=== PATIENT | female | born 1975 | race Caucasian/White ===

== ENCOUNTER 2016-09-25 10:07 | Emergency (ER) | payer BC ==
[2016-09-25 10:27] VITALS: BP 120/67; TEMP 98; BMI 30.7
[2016-09-25] MEDS ORDERED: KETOROLAC TROMETHAMINE 30 MG/1 ML VIAL IVPUSH ONE (11:18)
[2016-09-25] MEDS ORDERED: SODIUM CHLORIDE 1,000 ML IV STA (11:18)
--- NOTE | 2016-09-25 11:18 | PDOC ---
History of Present Illness - General History Source: Patient Exam Limitations: No Limitations - History of Present Illness Initial Comments: 09/25/16 11:20 The patient is a 41 year old female with no significant past medical history, who presents to the ED with a dry cough that began about a month ago. Patient states she has been on prednisone, amoxicillin, and sudafed PE in the past month , all with no effect. Patient also states that she ran out of her Singulair medication a month ago and has not had her prescription refilled. Patient denies chest pain, shortness of breath, nausea, vomiting, diarrhea. <Vega Whitaker - Last Filed: 09/25/16 12:20> <Fabby Prado - Last Filed: 09/25/16 17:05> - General Chief Complaint: Shortness of Breath Stated Complaint: COUGH, BACK PAIN Time Seen by Provider: 09/25/16 10:57 Past History <Vega Whitaker - Last Filed: 09/25/16 12:20> - Past Medical History GI Disorders: Yes (REFLUX) Other medical history: migraines.endometriosis - Immunization History Immunization Up to Date: Yes - Psycho/Social/Smoking Cessation Hx Anxiety: No Suicidal Ideation: No Smoking Status: No Smoking History: Never smoked Have you smoked in the past 12 months: No Number of Cigarettes Smoked Daily: 0 Cigars Per Day: 0 Information on smoking cessation initiated: No Hx Alcohol Use: No Drug/Substance Use Hx: No <Fabby Prado - Last Filed: 09/25/16 17:05> - Past Medical History Allergies/Adverse Reactions: Allergies Allergy/AdvReac Type Severity Reaction Status Date / Time No Known Allergies Allergy Verified 09/25/16 10:23 Home Medications: Ambulatory Orders Omeprazole [Prilosec] 20 mg PO PRN PRN 02/25/15 Propranolol HCl [Inderal] 80 mg PO DAILY 02/25/15 Albuterol Sulfate Inhaler - [Ventolin HFA Inhaler -] 1 - 2 inh PO QID PRN #1 inhaler 09/25/16 Amitriptyline HCl [Elavil -] 0 mg PO DAILY 09/25/16 Guaifenesin AC [Robitussin AC -] 5 ml PO Q6H PRN #60 ml MDD 20 mL 09/25/16 Montelukast Na [Singulair -] 10 mg PO HS #30 tablet 09/25/16 Review of Systems - Review of Systems Able to Perform ROS?: Yes Comments:: 09/25/16 11:20 GENERAL/CONSTITUTIONAL: No fever or chills. No weakness. HEAD, EYES, EARS, NOSE AND THROAT: No change in vision. No ear pain or discharge. No sore throat. CARDIOVASCULAR: No chest pain or shortness of breath. RESPIRATORY: + dry cough. No wheezing, or hemoptysis. GASTROINTESTINAL: No nausea, vomiting, diarrhea or constipation. GENITOURINARY: No dysuria, frequency, or change in urination. MUSCULOSKELETAL: No joint or muscle swelling or pain. No neck or back pain. SKIN: No rash NEUROLOGIC: No headache, vertigo, loss of consciousness, or change in strength/ sensation. ENDOCRINE: No increased thirst. No abnormal weight change. HEMATOLOGIC/LYMPHATIC: No anemia, easy bleeding, or history of blood clots. ALLERGIC/IMMUNOLOGIC: No hives or skin allergy. <Vega Whitaker - Last Filed: 09/25/16 12:20> *Physical Exam - Vital Signs Last Vital Signs Temp Pulse Resp BP Pulse Ox 98.0 F 77 18 120/67 99 09/25/16 10:24 09/25/16 10:24 09/25/16 10:24 09/25/16 10:24 09/25/16 10:24 - Physical Exam Comments: 09/25/16 11:21 GENERAL: Awake, alert, and fully oriented, in no acute distress. Intermittent episodes of dry cough. HEAD: No signs of trauma EYES: PERRLA, EOMI, sclera anicteric, conjunctiva clear ENT: Auricles normal inspection, hearing grossly normal, nares patent, oropharynx clear without exudates. Moist mucosa NECK: Normal ROM, supple, no lymphadenopathy, JVD, or masses LUNGS: Breath sounds equal, clear to auscultation bilaterally. No wheezes, and no crackles HEART: Regular rate and rhythm, normal S1 and S2, no murmurs, rubs or gallops ABDOMEN: Soft, nontender, normoactive bowel sounds. No guarding, no rebound. No masses EXTREMITIES: Normal range of motion, no edema. No clubbing or cyanosis. No cords, erythema, or tenderness NEUROLOGICAL: Cranial nerves II through XII grossly intact. Normal speech, normal gait SKIN: Warm, Dry, normal turgor, no rashes or lesions noted. <Vega Whitaker - Last Filed: 09/25/16 12:20> - Vital Signs Last Vital Signs Temp Pulse Resp BP Pulse Ox 98.0 F 77 18 120/67 99 09/25/16 10:24 09/25/16 10:24 09/25/16 10:24 09/25/16 10:24 09/25/16 10:24 <Fabby Prado - Last Filed: 09/25/16 17:05> ED Treatment Course - RADIOLOGY Radiology Studies Ordered: 09/25/16 12:20 EXAM: Chest PA and LAT History provided: Rule out pneumonia. PA and lateral projections of the chest are submitted. The heart size is within normal limites. THe lung appiah are free of pulmonary infiltrates or pleural effusions. There is a prominent pericardial fat pad in the right cardiophrenic angle. Impression: No acute pathology. <Vega Whitaker - Last Filed: 09/25/16 12:20> Medical Decision Making - Medical Decision Making Pt responded well to robitussin AC, no longer coughing. Able to tolerate PO and speak full sentences. Will discharge with inhaler, robitussin AC, and a refill of her singulair. <Fabby Prado - Last Filed: 09/25/16 17:05> *DC/Admit/Observation/Transfer - Attestations Scribe Attestion: 09/25/16 11:21 Documentation prepared by Vega Whitaker, acting as medical officer psychiatry for Fabby Prado MD, . <Vega Whitaker - Last Filed: 09/25/16 12:20> - Discharge Dispostion Admit: No <Fabby Prado - Last Filed: 09/25/16 17:05> Diagnosis at time of Disposition: Cough - Discharge Dispostion Disposition: HOME Condition at time of disposition: Stable - Prescriptions Prescriptions: Guaifenesin AC [Robitussin AC -] 5 ml PO Q6H PRN #60 ml MDD 20 mL PRN Reason: Cough Montelukast Na [Singulair -] 10 mg PO HS #30 tablet Albuterol Sulfate Inhaler - [Ventolin HFA Inhaler -] 1 - 2 inh PO QID PRN #1 inhaler PRN Reason: Short Of Breath/Wheezing - Referrals Referrals: Maria Del Carmen Werner MD [Primary Care Provider] - - Patient Instructions Printed Discharge Instructions: DI for Cough -- Adult
[2016-09-25] MEDS ORDERED: ALBUTEROL SO4 2.5/IPRATROPIUM 0.5 INH SOL 3 ML VIAL.NEB. NEB ONE ×2 (11:19→11:33)
[2016-09-25] MEDS ORDERED: guaiFENesin/CODEINE 10 ML UNIT-DOSE CUPS PO ONE (11:19)
[2016-09-25] MEDS ORDERED: DEXAMETHASONE SOD PHOSPHATE 10 MG/1 ML VIAL IVPB ONE (11:19)
[2016-09-25] MEDS ORDERED: guaiFENesin/CODEINE 5 ML UNIT-DOSE CUPS PO ONE (11:33)
[2016-09-25] MEDS ORDERED: DEXAMETHASONE SOD PHOSPHATE 10 MG/1 ML VIAL ONE (11:33)
[2016-09-25] MEDS ORDERED: KETOROLAC TROMETHAMINE 30 MG/1 ML VIAL ONE (11:34)
[2016-09-25 13:49] VITALS: PULSE 78
== END 2016-09-25 13:49 | disposition home or self-care (01) ==
LOC: JER 10:07
PROC: 3E0F7GC Introduction of Other Therapeutic Substance into Respiratory Tract, Via Natural or Artificial Opening (ICD-10-PCS; principal; 2016-09-25)
PROC: 3E0333Z Introduction of Anti-inflammatory into Peripheral Vein, Percutaneous Approach (ICD-10-PCS; 2016-09-25)
DX: R05 Cough (principal)
CPT/HCPCS: 36415; 71020-TC; 84703; 87420; 87804; 99282-25

== ENCOUNTER 2017-01-23 08:37 | Emergency (ER) | payer BC ==
[2017-01-23 08:50] VITALS: BMI 30.2
[2017-01-23] MEDS ORDERED: ALBUTEROL SO4 0.083% IH SOL 2.5 MG/3 ML VIAL.NEB. NEB ONE (09:33)
[2017-01-23] MEDS ORDERED: KETOROLAC TROMETHAMINE 30 MG/1 ML VIAL IVPUSH ONE (09:33)
[2017-01-23 09:35] LABS: URINE APPEARANCE CLEAR; URINE BILIRUBIN NEGATIVE (NEGATIVE); URINE BLOOD NEGATIVE (NEGATIVE); URINE COLOR LTYELLOW; URINE GLUCOSE (UA) NEGATIVE (NEGATIVE); URINE KETONE NEGATIVE (NEGATIVE); URINE LEUK ESTERASE NEGATIVE (NEGATIVE); URINE NITRITE NEGATIVE (NEGATIVE); URINE PROTEIN NEGATIVE (NEGATIVE); URINE UROBILINOGEN NEGATIVE E.U./dl (0.2-1.0)
[2017-01-23] MEDS ORDERED: KETOROLAC TROMETHAMINE 30 MG/1 ML VIAL ONE (09:46)
[2017-01-23 10:14] LABS: BASOPHIL 0.2 % (0-2.0); EOSINOPHIL 1.4 % (0-4.5); MCH 30.5 pg (25.7-33.7); MCHC 34.4 g/dl (32.0-36.0); MEAN CELL VOLUME 88.6 fl (80-96); MEAN PLT VOLUME 8.4 fl (7.5-11.1); NEUTROPHILS 56.7 % (42.8-82.8); PLATELET COUNT 281 K/MM3 (134-434); RDW 12.8 % (11.6-15.6); WHITE BLOOD COUNT 6.1 K/mm3 (4.0-10.0)
--- NOTE | 2017-01-23 10:21 | PDOC ---
*Physical Exam - Vital Signs Last Vital Signs Temp Pulse Resp BP Pulse Ox 97.8 F 68 18 111/73 99 01/23/17 08:41 01/23/17 08:41 01/23/17 08:41 01/23/17 08:41 01/23/17 08:41 - Physical Exam Comments: 01/23/17 10:20 The patient was examined by [YUAN Viera] under my direct supervision. I personally evaluated the patient. I concur with the above findings and the plan of care. ED Treatment Course - LABORATORY CBC & Chemistry Diagram: 01/23/17 09:55 01/23/17 09:55 - ADDITIONAL ORDERS Additional order review: Laboratory Results 01/23/17 01/23/17 09:30 09:15 Urine Color Ltyellow Urine Appearance Clear Urine pH 6.0 Urine Protein Negative Urine Glucose (UA) Negative Urine Ketones Negative Urine Blood Negative Urine Nitrite Negative Urine Bilirubin Negative Urine Urobilinogen Negative Ur Leukocyte Esterase Negative Urine HCG, Qual Negative - Medications Given in the ED: ED Medications Discontinued Medications Generic Name Dose Route Start Last Admin Trade Name Freq PRN Reason Stop Dose Admin Ketorolac Tromethamine 30 mg 01/23/17 09:33 01/23/17 09:57 Toradol Injection - IVPUSH 01/23/17 09:34 30 mg ONCE ONE Administration *DC/Admit/Observation/Transfer Diagnosis at time of Disposition: Bronchitis - Discharge Dispostion Disposition: HOME Condition at time of disposition: Good - Prescriptions Prescriptions: Albuterol Sulfate Inhaler - [Ventolin HFA Inhaler -] 1 - 2 inh PO QID PRN #1 inhaler PRN Reason: Wheezing Azithromycin [Zithromax Tri-Ambrose (3 DAYS) -] 500 mg PO DAILY #3 tablet - Referrals Referrals: Maria Del Carmen Werner MD [Primary Care Provider] - - Patient Instructions Printed Discharge Instructions: DI for Acute Bronchitis Additional Instructions: Please take antibiotics as prescribed and use your inhaler as needed. Also recommend that you use throat lozenges and take Robitussin as needed for cough suppression. Please follow up with your PCP and/or return to ED if symptoms worsen - Post Discharge Activity Work/School Note: Back to Work
[2017-01-23 10:25] LABS: ALBUMIN 3.9 g/dl (3.4-5.0); ANION GAP 10 (8-16); BILIRUBIN,TOTAL 0.5 mg/dL (0.2-1.0); CALCIUM 9.3 mg/dL (8.5-10.1); CO2 22 mmol/L (21-32); COCKROFT - GAULT 108.2815; CREATININE 0.9 mg/dL (0.55-1.02); GLUCOSE,RANDOM 98 mg/dL (74-106); SGOT/AST 21 U/L (15-37); SGPT/ALT 25 U/L (12-78); TOT PROT 7.5 g/dl (6.4-8.2)
[2017-01-23 10:26] LABS: ALK PHOS 76 U/L (45-117); TROPONIN I < 0.02 ng/ml (0.00-0.05)
--- NOTE | 2017-01-23 11:00 | PDOC ---
History of Present Illness - General Chief Complaint: Chest Pain Stated Complaint: CHEST SIDE, LT SIDE NUMBNESS Time Seen by Provider: 01/23/17 08:48 History Source: Patient Exam Limitations: No Limitations - History of Present Illness Initial Comments: 01/23/17 10:58 41-year-old female presents to the ED with complaints of dry hacking cough and nasal congestion for the past week now associated with left-sided chest achiness and mild shortness of breath on exertion. Patient states also has been having tingling to her upper and lower extremities for the past few months after being placed on Topamax but now complaining of tingling to the left arm more persistently for the past 2 days. Patient denies recent travel, recent surgery, recent illness, or exogenous estrogen usage. Presenting Symptoms: Chest Pain Timing/Duration: reports: constant Severity/Quality: reports: mild, moderate, aching Location: reports: substernal Chest Pain Radiation: reports: no radiation Activities at Onset: reports: none Prior Chest Pain/Cardiac Workup: reports: No prior chest pain Nitro Today/Relief: Yes: no nitro taken today Aspirin Received prior to arrival (Core Measure): Yes: no aspirin today Associated Symptoms: Yes: Cough, Chest Pain/pressure, Shortness of Breath (mild with exertion). No: Weakness Past History - Past Medical History Allergies/Adverse Reactions: Allergies Allergy/AdvReac Type Severity Reaction Status Date / Time latex Allergy Verified 01/23/17 08:51 Home Medications: Ambulatory Orders Omeprazole [Prilosec] 20 mg PO PRN PRN 02/25/15 Propranolol HCl [Inderal] 80 mg PO DAILY 02/25/15 Albuterol Sulfate Inhaler - [Ventolin HFA Inhaler -] 1 - 2 inh PO QID PRN #1 inhaler 09/25/16 Montelukast Na [Singulair -] 10 mg PO HS #30 tablet 09/25/16 Meloxicam [Mobic (Nf) -] 15 mg PO PRN 01/23/17 Topiramate 100 mg PO DAILY 01/23/17 Anemia: Yes GI Disorders: Yes (REFLUX) Other medical history: ENDOMETRIOSIS, MIGRAINES - Immunization History Immunization Up to Date: Yes - Psycho/Social/Smoking Cessation Hx Anxiety: No Suicidal Ideation: No Smoking Status: No Smoking History: Never smoked Have you smoked in the past 12 months: No Number of Cigarettes Smoked Daily: 0 Cigars Per Day: 0 Hx Alcohol Use: No Drug/Substance Use Hx: No Patient Lives Alone: No Lives with/in: spouse/SO Review of Systems - Review of Systems Able to Perform ROS?: Yes Constitutional: No: Symptoms Reported, Chills, Fever, Weakness HEENTM: No: Symptoms Reported Respiratory: Yes: Cough, SOB with Exertion Cardiac (ROS): Yes: Chest Pain (left) ABD/GI: No: Symptoms Reported Musculoskeletal: No: Symptoms Reported Integumentary: No: Symptoms Reported Neurological: No: Symptoms reported Endocrine: No: Symptoms Reported Hematologic/Lymphatic: No: Symptoms Reported *Physical Exam - Vital Signs Last Vital Signs Temp Pulse Resp BP Pulse Ox 98.7 F 88 17 118/78 100 01/23/17 12:58 01/23/17 12:58 01/23/17 12:58 01/23/17 12:58 01/23/17 12:58 - Physical Exam General Appearance: Yes: Nourished, Appropriately Dressed. No: Apparent Distress HEENT: positive: EOMI, HILL[place], TMs Normal, Pharynx Normal. negative: Pale Conjunctivae Neck: positive: Supple Respiratory/Chest: positive: Lungs Clear, Normal Breath Sounds. negative: Chest Tender, Respiratory Distress, Accessory Muscle Use, Decreased Breath Sounds Cardiovascular: positive: Regular Rhythm, Regular Rate. negative: Murmur Vascular Pulses: Dorsalis-Pedis (R): 2+, Doralis-Pedis (L): 2+ Gastrointestinal/Abdominal: positive: Soft. negative: Tenderness Musculoskeletal: negative: CVA Tenderness Extremity: positive: Normal Capillary Refill. negative: Pedal Edema Integumentary: positive: Normal Color, Warm, Moist Neurologic: positive: Motor Strength 5/5 (ambulatory) ED Treatment Course - LABORATORY CBC & Chemistry Diagram: 01/23/17 09:55 01/23/17 09:55 - ADDITIONAL ORDERS Additional order review: Laboratory Results 01/23/17 01/23/17 01/23/17 09:55 09:55 09:55 D-Dimer 253 H Sodium 139 Potassium 4.4 Chloride 107 Carbon Dioxide 22 Anion Gap 10 BUN 16 Creatinine 0.9 D Creat Clearance w eGFR > 60 Random Glucose 98 Calcium 9.3 Magnesium 2.2 Total Bilirubin 0.5 D AST 21 D ALT 25 Alkaline Phosphatase 76 D Creatine Kinase 141 Troponin I < 0.02 Total Protein 7.5 Albumin 3.9 Urine Color Urine Appearance Urine pH Urine Protein Urine Glucose (UA) Urine Ketones Urine Blood Urine Nitrite Urine Bilirubin Urine Urobilinogen Ur Leukocyte Esterase Urine HCG, Qual 01/23/17 01/23/17 09:30 09:15 D-Dimer Sodium Potassium Chloride Carbon Dioxide Anion Gap BUN Creatinine Creat Clearance w eGFR Random Glucose Calcium Magnesium Total Bilirubin AST ALT Alkaline Phosphatase Creatine Kinase Troponin I Total Protein Albumin Urine Color Ltyellow Urine Appearance Clear Urine pH 6.0 Urine Protein Negative Urine Glucose (UA) Negative Urine Ketones Negative Urine Blood Negative Urine Nitrite Negative Urine Bilirubin Negative Urine Urobilinogen Negative Ur Leukocyte Esterase Negative Urine HCG, Qual Negative 01/23/17 09:55 RBC 4.25 MCV 88.6 MCHC 34.4 RDW 12.8 MPV 8.4 Neutrophils % 56.7 D Lymphocytes % 31.5 D Monocytes % 10.2 D Eosinophils % 1.4 Basophils % 0.2 - RADIOLOGY Radiology Studies Ordered: Category Date Time Status CHEST CTA [CT] Stat CT Scan 01/23/17 11:14 Completed - Medications Given in the ED: ED Medications Discontinued Medications Generic Name Dose Route Start Last Admin Trade Name Freq PRN Reason Stop Dose Admin Albuterol Sulfate 1 amp 01/23/17 09:33 01/23/17 09:40 Ventolin 0.083% Nebulizer Soln - NEB 01/23/17 09:34 1 amp ONCE ONE Administration Diphenhydramine HCl 50 mg 01/23/17 12:22 01/23/17 12:00 Benadryl Injection - IVPB 01/23/17 12:23 50 mg ONCE ONE Administration Ketorolac Tromethamine 30 mg 01/23/17 09:33 01/23/17 09:57 Toradol Injection - IVPUSH 01/23/17 09:34 30 mg ONCE ONE Administration Methylprednisolone Sodium Succinate 125 mg 01/23/17 12:22 01/23/17 12:05 Solu-Medrol - IVPB 01/23/17 12:23 125 mg ONCE ONE Administration Medical Decision Making - Medical Decision Making 01/23/17 11:03 Patient here with complaints of cough and congestion for the past week now associated with left-sided chest pain and shortness breath on exertion. Patient examined had no acute findings. Patient was ordered for labs including cardiac profile, CBC, comp, d-dimer and chest x-ray and EKG.. 01/23/17 11:15 Laboratory Tests 01/23/17 01/23/17 01/23/17 09:15 09:30 09:55 WBC 6.1 Hgb 12.9 Hct 37.6 Plt Count 281 Neutrophils % 56.7 D D-Dimer Sodium Potassium Chloride Carbon Dioxide Anion Gap BUN Creatinine Random Glucose Calcium Magnesium Total Bilirubin AST ALT Alkaline Phosphatase Creatine Kinase Troponin I Urine Ketones Negative Urine Nitrite Negative Urine HCG, Qual Negative 01/23/17 01/23/17 01/23/17 09:55 09:55 09:55 WBC Hgb Hct Plt Count Neutrophils % D-Dimer 253 H Sodium 139 Potassium 4.4 Chloride 107 Carbon Dioxide 22 Anion Gap 10 BUN 16 Creatinine 0.9 D Random Glucose 98 Calcium 9.3 Magnesium 2.2 Total Bilirubin 0.5 D AST 21 D ALT 25 Alkaline Phosphatase 76 D Creatine Kinase 141 Troponin I < 0.02 Urine Ketones Urine Nitrite Urine HCG, Qual Pt ordered for chest CTA 01/23/17 13:38 CT of the chest shows no gross evidence of PE within the main pulmonary artery and its proximal branches bilaterally. No signs of pneumonia or other acute findings. Patient be discharged home with Z-Ambrose, inhaler and told to follow-up with her PCP. *DC/Admit/Observation/Transfer Diagnosis at time of Disposition: Bronchitis - Discharge Dispostion Disposition: HOME Condition at time of disposition: Good - Referrals Referrals: Maria Del Carmen Werner MD [Primary Care Provider] - - Patient Instructions Printed Discharge Instructions: DI for Acute Bronchitis Additional Instructions: Please take antibiotics as prescribed and use your inhaler as needed. Also recommend that you use throat lozenges and take Robitussin as needed for cough suppression. Please follow up with your PCP and/or return to ED if symptoms worsen
[2017-01-23] MEDS ORDERED: methylPREDNISolone NA SUCC 125 MG/2 ML VIAL ONE (11:57)
[2017-01-23] MEDS ORDERED: methylPREDNISolone NA SUCC 125 MG/2 ML VIAL IVPB ONE (12:22)
[2017-01-23 12:59] VITALS: BP 118/78; PULSE 88; TEMP 98.7
--- NOTE | 2017-01-23 15:50 | EKG ---
Test Reason : Blood Pressure : / mmHG Vent. Rate : 069 BPM Atrial Rate : 069 BPM P-R Int : 168 ms QRS Dur : 078 ms QT Int : 374 ms P-R-T Axes : 034 060 028 degrees QTc Int : 400 ms NORMAL SINUS RHYTHM NORMAL ECG WHEN COMPARED WITH ECG OF 04-AUG-2012 17:45, VENT. RATE HAS DECREASED BY 38 BPM T WAVE VARIATION Confirmed by LUIS DIEGO MD ([id number]) on 01/23/2017 3:50:41 PM Referred By: Confirmed By:LUIS DIEGO MD
== END 2017-01-23 14:00 | disposition home or self-care (01) ==
LOC: JER 08:37
PROC: 3E0F7GC Introduction of Other Therapeutic Substance into Respiratory Tract, Via Natural or Artificial Opening (ICD-10-PCS; principal; 2017-01-23)
PROC: 3E0333Z Introduction of Anti-inflammatory into Peripheral Vein, Percutaneous Approach (ICD-10-PCS; 2017-01-23)
PROC: 3E0333Z Introduction of Anti-inflammatory into Peripheral Vein, Percutaneous Approach (ICD-10-PCS; 2017-01-23)
PROC: 3E033GC Introduction of Other Therapeutic Substance into Peripheral Vein, Percutaneous Approach (ICD-10-PCS; 2017-01-23)
DX: J40 Bronchitis, not specified as acute or chronic (principal)
CPT/HCPCS: 36415; 71275-TC; 80053; 81003; 82550; 83735; 84484; 84703; 85025; 85379; 93005; 93010; 99284-25

== ENCOUNTER 2018-02-07 09:20 | Emergency (ER) | payer BC ==
[2018-02-07 09:31] VITALS: BP 112/78; PULSE 62; TEMP 98.6; BMI 24.2
[2018-02-07] MEDS ORDERED: NAPROXEN 500 MG TABLET (FP) PO ONE (09:44)
[2018-02-07] MEDS ORDERED: KETOROLAC TROMETHAMINE 15 MG/ML VIAL IM ONE (09:48)
[2018-02-07] MEDS ORDERED: KETOROLAC TROMETHAMINE 30 MG/1 ML VIAL ONE (09:52)
--- NOTE | 2018-02-07 09:58 | PDOC ---
History of Present Illness - General Chief Complaint: Pain Stated Complaint: LEFT HAND, LEFT WRIST PAIN Time Seen by Provider: 02/07/18 09:28 - History of Present Illness Initial Comments: 02/07/18 09:45 43-year-old right-handed female with a history of hysterectomy, spinal stenosis , rotator cuff injury followed by pain management and is on gabapentin for 1 week presents to the emergency Department with left wrist pain for 2 days. Patient denies any trauma. She states the pain began when she was on her way to go bowling with her children. Denies any trauma to the wrist. She states the pain is worse over the lateral aspect of her wrist radiating from her thumb and up into her distal lateral forearm. Reports similar pain in the past but over her shoulder. Patient has not tried any pain medication and missed her dose of gabapentin last night. Denies any fevers or chills. Denies chest pain, shortness of breath, headache, weakness, numbness, abdominal pain. Past History - Past Medical History Allergies/Adverse Reactions: Allergies Allergy/AdvReac Type Severity Reaction Status Date / Time latex Allergy Verified 01/23/17 08:51 shellfish derived Allergy Verified 02/07/18 09:22 IV CONTRAST Allergy Uncoded 02/07/18 09:22 Home Medications: Ambulatory Orders propRANOLol HCL [Inderal] 80 mg PO DAILY 02/25/15 Montelukast Na [Singulair -] 10 mg PO HS #30 tablet 09/25/16 Topiramate 50 mg PO BID 01/23/17 Cetirizine HCl [Zyrtec -] 10 mg PO DAILY 02/07/18 Anemia: Yes COPD: No GI Disorders: Yes (REFLUX) Other medical history: SEASONAL ALLERGIES, LEFT ROTATOR TENDINITIS, MIGRAINE HEADACHES - Immunization History Immunization Up to Date: Yes - Suicide/Smoking/Psychosocial Hx Smoking Status: No Smoking History: Never smoked Have you smoked in the past 12 months: No Number of Cigarettes Smoked Daily: 0 Cigars Per Day: 0 Hx Alcohol Use: No Drug/Substance Use Hx: No Review of Systems - Review of Systems Comments:: 02/07/18 09:48 GENERAL/CONSTITUTIONAL: No fever or chills. No weakness. HEAD, EYES, EARS, NOSE AND THROAT: No change in vision. No ear pain or discharge. No sore throat. GASTROINTESTINAL: No nausea, vomiting, diarrhea or constipation. GENITOURINARY: No dysuria, frequency, or change in urination. CARDIOVASCULAR: No chest pain or shortness of breath. RESPIRATORY: No cough, wheezing, or hemoptysis. MUSCULOSKELETAL: +L wrist pain. No neck or back pain. SKIN: No rash NEUROLOGIC: No headache, vertigo, loss of consciousness, or change in strength/ sensation. ENDOCRINE: No increased thirst. No abnormal weight change. HEMATOLOGIC/LYMPHATIC: No anemia, easy bleeding, or history of blood clots. ALLERGIC/IMMUNOLOGIC: No hives or skin allergy. *Physical Exam - Vital Signs Last Vital Signs Temp Pulse Resp BP Pulse Ox 98.6 F 62 18 112/78 100 02/07/18 09:20 02/07/18 09:20 02/07/18 09:20 02/07/18 09:20 02/07/18 09:20 - Physical Exam Comments: 02/07/18 09:49 GENERAL: Awake, alert, and fully oriented, in no acute distress EYES: PERRLA, EOMI, sclera anicteric, conjunctiva clear LUNGS: Breath sounds equal, clear to auscultation bilaterally. No wheezes, and no crackles HEART: Regular rate and rhythm, normal S1 and S2, no murmurs, rubs or gallops ABDOMEN: Soft, nontender, normoactive bowel sounds. No guarding, no rebound. No masses EXTREMITIES: L wrist: tenderness to palpation over the radial styloid, pain at the radial styloid with active and passive stretch the thumb tendons over the radial styloid in thumb flexion. Able to fully flex and extend hand at the wrist. FROM at the wrist. No edema, erythema. Able to give thumbs up, okay sign and abduct fingers against resistance. Normal sensation in L extremity. 2+ radial pulse. Other ext: Normal range of motion, no edema. No clubbing or cyanosis. No cords , erythema, or tenderness BACK: no midline cervical, lumabar, thoracic ttp NEUROLOGICAL: Normal speech, cranial nerves intact, negative pronator drift, 5/ 5 strength in all 4 extremities, normal sensation to light touch in all 4 extremities, normal cerebellar exam, normal gait, normal reflexes and tone SKIN: Warm, Dry, normal turgor, no rashes or lesions noted. ED Treatment Course - RADIOLOGY Radiology Studies Ordered: Category Date Time Status WRIST-LEFT [RAD] Stat Radiology 02/07/18 09:43 Ordered Medical Decision Making - Medical Decision Making 02/07/18 09:57 43yo F presents to the ED with atraumatic L wrist pain consistent with dequervain tendinopathy. Vitals wnl. Pt NVI on exam but with positive cierra's test. Will obtain XR, treat with toradol and reassess. 02/07/18 10:48 XR negative. Pain improved with toradol. Will provide hand f/u referral. I discussed the physical exam findings, ancillary test results and final diagnoses with the patient. I answered all of the patient's questions. The patient was satisfied with the care received and felt comfortable with the discharge plan and treatment plan. The patient will call their primary care physician within 24 hours to arrange follow-up and will return to the Emergency Department with any new, persistent or worsening symptoms. *DC/Admit/Observation/Transfer Diagnosis at time of Disposition: De Quervain's disease (tenosynovitis) - Discharge Dispostion Disposition: HOME Condition at time of disposition: Stable Decision to Admit order: No - Referrals Referrals: Joey Duron MD [Staff Physician] - - Patient Instructions Additional Instructions: Call Dr. Duron's office for a follow up appointment with a hand doctor within 1 week. Take the naproxen twice a day for pain and inflammation. Return to the emergency department if you have any new, worsening, or concerning symptoms. - Post Discharge Activity - Attestations Physician Attestion: 02/07/18 10:51 I, Dr. Sandeep Morgan MD, attest that this document has been prepared under my direction and personally reviewed by me in its entirety. I further attest, that it accurately reflects all work, treatment, procedures and medical decision -making performed by me.
== END 2018-02-07 11:00 | disposition home or self-care (01) ==
LOC: FER 09:20
PROC: 3E0233Z Introduction of Anti-inflammatory into Muscle, Percutaneous Approach (ICD-10-PCS; principal; 2018-02-07)
DX: J30.2 Other seasonal allergic rhinitis (principal); D64.9 Anemia, unspecified
CPT/HCPCS: 73110-TC-LR-FY; 99283-25

== ENCOUNTER 2020-08-29 02:51 | Inpatient (IN) | payer BC ==
[2020-08-29 04:43] LABS: BASO % 0.2 % (0-2.0); HEMATOCRIT 32.1 % (32.4-45.2); HEMOGLOBIN 10.9 GM/dL (10.7-15.3); MCH 31.4 pg (25.7-33.7); MCHC 33.9 g/dl (32.0-36.0); MEAN CELL VOLUME 92.5 fl (80-96); MEAN PLT VOLUME 7.6 fl (7.5-11.1); NEUT % 47.8 % (42.8-82.8); PLATELET COUNT 366 K/MM3 (134-434); RBC 3.47 M/mm3 (3.60-5.2); RDW 13.1 % (11.6-15.6)
[2020-08-29 05:04] LABS: CHLORIDE 110 mmol/L (98-107); POTASSIUM 4.2 mmol/L (3.5-5.1); SODIUM 140 mmol/L (136-145)
[2020-08-29 05:07] LABS: CALCIUM 8.7 mg/dL (8.5-10.1)
[2020-08-29 05:08] LABS: ALBUMIN 3.3 g/dl (3.4-5.0); ANION GAP 7 MMOL/L (8-16); BLOOD UREA NITROGEN 20.2 mg/dL (7-18); CO2 23 mmol/L (21-32); GLUCOSE,RANDOM 109 mg/dL (74-106)
[2020-08-29 05:10] LABS: CREATININE 0.7 mg/dL (0.55-1.3); SGOT/AST 40 U/L (15-37); SGPT/ALT 62 U/L (13-61)
[2020-08-29 05:12] LABS: BILIRUBIN,TOTAL 0.2 mg/dL (0.2-1); TOT PROT 7.1 g/dl (6.4-8.2)
[2020-08-29 05:14] LABS: ALK PHOS 84 U/L (45-117)
[2020-08-29] MEDS ORDERED: PREGABALIN 25 MG CAPSULE PO ONE (11:35)
[2020-08-29] MEDS ORDERED: METHOCARBAMOL 500 MG TABLET PO ONE (11:36)
[2020-08-29] MEDS ORDERED: METHOCARBAMOL 500 MG TABLET ONE (11:39)
[2020-08-29 15:18] VITALS: BMI 28.8
[2020-08-29] MEDS ORDERED: DOCUSATE SODIUM 100 MG CAPSULE (FP) PO PRN (15:18)
[2020-08-29] MEDS ORDERED: MORPHINE SULFATE 2 MG/ML VIAL IVPUSH PRN (15:21)
[2020-08-29] MEDS: ENOXAPARIN NA (PORCINE) 80 MG/0.8 ML DISP.SYRIN SQ SCH (15:39)
[2020-08-29] MEDS: PREGABALIN 25 MG CAPSULE PO SCH ×2 (15:39→21:18)
[2020-08-29] MEDS: METHOCARBAMOL 500 MG TABLET PO PRN (21:28)
[2020-08-29] MEDS ORDERED: LORATADINE 10 MG TABLET PO SCH (22:00)
[2020-08-29] MEDS ORDERED: MONTELUKAST NA 10 MG TABLET PO SCH (22:00)
[2020-08-29] MEDS ORDERED: TOPIRAMATE 100 MG TABLET PO SCH (22:00)
[2020-08-29] MEDS ORDERED: PT OWN MED DRAWER 7, Y5N ONE (22:29)
[2020-08-30] MEDS: ENOXAPARIN NA (PORCINE) 80 MG/0.8 ML DISP.SYRIN SQ SCH ×2 (02:14→17:17)
[2020-08-30] MEDS: PREGABALIN 25 MG CAPSULE PO SCH ×2 (06:18→13:28)
[2020-08-30 08:12] LABS: BASO % 2.4 % (0-2.0); EOS % 2.5 % (0-4.5); HEMOGLOBIN 11.3 GM/dl (10.7-15.3); LYMPH % 48.1 % (8-40); MCHC 32.4 g/dl (32.0-36.0); MEAN CELL VOLUME 92.6 fl (80-96); MEAN PLT VOLUME 7.7 fl (7.5-11.1); MONO % 9.5 % (3.8-10.2); NEUT % 37.5 % (42.8-82.8); PLATELET COUNT 424 K/MM3 (134-434); RBC 3.78 M/mm3 (3.60-5.2); RDW 12.3 % (11.6-15.6); WHITE BLOOD COUNT 6.5 K/mm3 (4.0-10.8)
[2020-08-30 08:41] LABS: ALBUMIN 3.4 g/dl (3.4-5.0); BILIRUBIN,TOTAL 0.6 mg/dl (0.2-1); CALCIUM 8.8 mg/dl (8.5-10); CREATININE 0.7 mg/dl (0.55-1.3); MAGNESIUM 1.8 mg/dL (1.8-2.4); PHOSPHOROUS 3.9 mg/dl (2.5-4.9); POTASSIUM 3.6 mmol/L (3.5-5.1); TOT PROT 6.9 g/dl (6.4-8.2)
[2020-08-30] MEDS ORDERED: PANTOPRAZOLE 40 MG TABLET PO SCH (10:00)
[2020-08-30] MEDS ORDERED: FAMOTIDINE 20 MG TABLET PO SCH (10:00)
[2020-08-30] MEDS ORDERED: PT OWN MED DRAWER 7, Y5N ONE (11:47)
[2020-08-30] MEDS: METHOCARBAMOL 500 MG TABLET PO PRN (11:50)
[2020-08-30 14:50] VITALS: BP 112/79; PULSE 84; TEMP 98.9
[2020-08-30] MEDS ORDERED: LORATADINE 10 MG TABLET PO SCH (22:00)
== END 2020-08-30 18:11 | disposition home or self-care (01) | DRG 204 ==
LOC: FER 02:51 → FM/S 13:53
PROVIDERS: ADMIT Internal Medicine; ATTEND Nurse Practitioner Acute Care
DX: R06.02 Shortness of breath (principal); R07.9 Chest pain, unspecified; J45.909 Unspecified asthma, uncomplicated; K21.9 Gastro-esophageal reflux disease without esophagitis; M25.519 Pain in unspecified shoulder
CPT/HCPCS: 36415; 71046-TC-FY; 71250-TC; 78582-TC; 80053; 81003; 82550; 83735; 84100; 84443; 84484; 84703; 85025; 85379; 93005; 93970-TC; 99285-25; A9539; A9540; C9803; U0003

== ENCOUNTER 2020-09-10 12:27 | Emergency (ER) | payer BC | END 2020-09-10 12:55 | disposition home or self-care (01) | LOC: JVIRT 12:27 | DX: Z20.822 Contact with and (suspected) exposure to COVID-19 (principal) | CPT/HCPCS: C9803; Q3014-GT; U0003 ==

== ENCOUNTER 2020-10-07 10:58 | Emergency (ER) | payer BC | END 2020-10-07 11:29 | disposition home or self-care (01) | LOC: JVIRT 10:58 | DX: J06.9 Acute upper respiratory infection, unspecified (principal); Z20.822 Contact with and (suspected) exposure to COVID-19 | CPT/HCPCS: C9803; G2012-GT; U0003 ==

== ENCOUNTER 2021-07-21 23:58 | Emergency (ER) | payer BC ==
[2021-07-22 00:11] VITALS: TEMP 97.8
[2021-07-22 00:20] VITALS: BMI 26.6
[2021-07-22] MEDS ORDERED: ALBUTEROL SO4 2.5/IPRATROPIUM 0.5 INH SOL 3 ML VIAL.NEB. NEB ONE ×2 (00:45→00:49)
[2021-07-22 01:31] LABS: BASO % 0.2 % (0-2.0); EOS % 1.5 % (0-4.5); HEMATOCRIT 35.4 % (32.4-45.2); HEMOGLOBIN 12.3 GM/dL (10.7-15.3); LYMPH % 37.4 % (8-40); MCHC 34.7 g/dl (32.0-36.0); MEAN CELL VOLUME 92.2 fl (80-96); MEAN PLT VOLUME 7.8 fl (7.5-11.1); MONO % 8.9 % (3.8-10.2); PLATELET COUNT 313 10^3/uL (134-434); RBC 3.84 M/mm3 (3.60-5.2); RDW 12.7 % (11.6-15.6); WHITE BLOOD COUNT 8.1 K/mm3 (4.0-10.0)
[2021-07-22 01:39] LABS: INR 1.02 (0.83-1.09); PROTHROMBIN TIME (PATIENT) 11.9 SEC (9.7-13.0)
[2021-07-22 01:41] LABS: ACTIVATED PTT 30.4 SECONDS (25.2-36.5)
[2021-07-22 01:55] LABS: CHLORIDE 110 mmol/L (98-107); SODIUM 139 mmol/L (136-145)
[2021-07-22 01:57] LABS: ALBUMIN 3.8 g/dl (3.4-5.0)
[2021-07-22 02:00] LABS: ANION GAP 8 MMOL/L (8-16); BLOOD UREA NITROGEN 14.7 mg/dL (7-18); CO2 21 mmol/L (21-32); GLUCOSE,RANDOM 91 mg/dL (74-106)
[2021-07-22 02:03] LABS: CREATININE 0.9 mg/dL (0.55-1.3); SGOT/AST 21 U/L (15-37); SGPT/ALT 22 U/L (13-61)
[2021-07-22 02:04] LABS: BILIRUBIN,TOTAL 0.4 mg/dL (0.2-1); TOT PROT 7.7 g/dl (6.4-8.2)
[2021-07-22 02:06] LABS: ALK PHOS 60 U/L (45-117)
[2021-07-22 03:27] VITALS: BP 118/76; PULSE 88
== END 2021-07-22 03:25 | disposition home or self-care (01) ==
LOC: JER 23:58
PROC: 3E0F7GC Introduction of Other Therapeutic Substance into Respiratory Tract, Via Natural or Artificial Opening (ICD-10-PCS; principal; 2021-07-21)
DX: J98.01 Acute bronchospasm (principal); R07.9 Chest pain, unspecified; J45.20 Mild intermittent asthma, uncomplicated
CPT/HCPCS: 36415; 70450-TC; 71046-TC-FY; 80053; 84484; 85025; 85610; 85730; 93005; 93010; 99285-25; C9803; U0003; U0005

== ENCOUNTER 2024-03-25 20:55 | Emergency (ER) | payer BC ==
[2024-03-25 21:14] VITALS: BP 135/85; PULSE 91; RESP 18; TEMP 97.9; BMI 29.0
== END 2024-03-25 22:53 | disposition home or self-care (01) ==
LOC: JER 20:55
DX: R07.81 Pleurodynia (principal)
CPT/HCPCS: 93005; 93010; 99283-25